=== PATIENT | female | born 1950 | race Caucasian/White ===

== ENCOUNTER 2017-08-19 19:59 | Emergency (ER) | payer MEDICARE, BC ==
[~2017-08-19] VITALS: Ht 165.1 cm; Wt 75.7 kg
[~2017-08-19 19:59] MED LIST: LANS30CA37 PO; OXYB10TA4 PO; SIMV20TA5 PO; SOLI10TA6 PO
[2017-08-19 20:44] LABS: BASOPHILS # (AUTO) 0.1 X10'3 (0-0.2); BASOPHILS % (AUTO) 0.8 % (0-1); EOSINOPHILS # (AUTO) 0.8 X10'3 (0-0.9); EOSINOPHILS % (AUTO) 7.6 % (0-6); HEMATOCRIT 40.5 % (35.0-45.0); HEMOGLOBIN 13.9 g/dl (12.0-16.0); LYMPHOCYTES # (AUTO) 3.8 X10'3 (1.1-4.8); LYMPHOCYTES % (AUTO) 36.8 % (21-51); MEAN CORPUSCULAR HEMOGLOBIN 33.1 PG (27.0-31.0); MEAN CORPUSCULAR HGB CONC 34.3 % (33.0-36.5); MEAN CORPUSCULAR VOLUME 96.5 FL (78-98); MEAN PLATELET VOLUME 7.3 FL (7.4-10.4); MONOCYTES # (AUTO) 0.9 X10'3 (0-0.9); MONOCYTES % (AUTO) 8.5 % (2-12); NEUTROPHILS # (AUTO) 4.8 X10'3 (1.8-7.7); NEUTROPHILS % (AUTO) 46.3 % (42-75); PLATELET COUNT 360 X10'3 (140-440); RED BLOOD COUNT 4.19 X10'6 (4.20-5.60); RED CELL DISTRIBUTION WIDTH 13.5 % (11.5-14.5); WHITE BLOOD COUNT 10.3 X10'3 (4.5-11.0)
[2017-08-19] MEDS ORDERED: ondansetron 4mg rapidly disintigrating tab PO ONE (20:45)
[2017-08-19 20:55] LABS: PARTIAL THROMBOPLASTIN TIME 34 SECONDS (22-32); PROTHROMBIN TIME 10.7 SECONDS (9.0-12.0)
[2017-08-19 21:00] LABS: ALANINE AMINOTRANSFERASE 28 U/L (12-78); ALBUMIN 3.6 G/DL (3.4-5.0); ALKALINE PHOSPHATASE 84 IU/L (46-116); ANION GAP 8 (8-16); ASPARTATE AMINO TRANSFERASE 39 U/L (10-37); BILIRUBIN,TOTAL 0.3 MG/DL (0.1-1.0); BLOOD UREA NITROGEN 27 MG/DL (7-18); BUN/CREATININE RATIO 33.8 (6.6-38.0); CHLORIDE 106 MMOL/L (99-107); GLUCOSE 144 MG/DL (70-104); LIPASE 204 U/L (73-393); POTASSIUM 3.8 MMOL/L (3.5-5.1); SODIUM 141 MMOL/L (135-145); TOTAL CARBON DIOXIDE 26.9 MMOL/L (24-32); TOTAL PROTEIN 7.2 G/DL (6.4-8.2); eGFR 71 ML/MIN
[2017-08-19] MEDS ORDERED: ketorolac trometh. 30mg/ml inj. IM ONE (21:35)
[2017-08-19 23:22] LABS: CLARITY,URINE CLEAR (Clear); COLOR,URINE YELLOW (Yellow); GLUCOSE, URINE NEGATIVE (Neg); KETONES,URINE TRACE mg/dl (Neg); LEUKOCYTE ESTERASE ,URINE TRACE (Neg); NITRITES, URINE NEGATIVE (Neg); OCCULT BLOOD,URINE NEGATIVE (Neg); PH,URINE 6.5 (4.8-8.0); PROTEIN,URINE NEGATIVE (Neg)
[2017-08-19 23:25] LABS: UA COLLECTION TYPE CLN CATCH MIDSTREAM
[2017-08-19 23:30] LABS: BACTERIA,URINE 1+ /HPF (Neg); RBC,URINE 0-2 /HPF (0-2); SQUAMOUS EPITHELIAL CELL,UR MODERATE /LPF (FEW); WBC,URINE 0-4 /HPF (0-4)
[2017-08-19] MEDS ORDERED: FAMO-128 PO (23:46)
[2017-08-19] MEDS ORDERED: NITR100C PO (23:46)
[2017-08-19 23:59] VITALS: BP 135/60
== END 2017-08-20 | disposition home or self-care (01) ==
LOC: ER 19:59
DX: K29.00 Acute gastritis without bleeding (principal); N39.0 Urinary tract infection, site not specified; I48.91 Unspecified atrial fibrillation; Z90.710 Acquired absence of both cervix and uterus; Z98.890 Other specified postprocedural states; Z79.899 Other long term (current) drug therapy; Z88.2 Allergy status to sulfonamides; Z88.1 Allergy status to other antibiotic agents
CPT/HCPCS: 36415; 71045; 80053; 81001; 84484; 85025; 85610; 85730; 87088; 93005; 96372; 99285; A4353; J1885; 83690

== ENCOUNTER 2021-01-23 17:53 | Emergency (ER) | payer MEDICARE, BC ==
[~2021-01-23] VITALS: Ht 165.1 cm; Wt 73.0 kg
[~2021-01-23 17:53] MED LIST changes: +APIX5TAB3 PO; +ASPI-1071 PO; +ATOR10TA PO; +ESTR1TAB28 PO; +LACT1CAP26 PO; -LANS30CA37 PO; +LANS30CA56 PO; +LOP25T PO; -OXYB10TA4 PO; -SIMV20TA5 PO; -SOLI10TA6 PO; +TOLT2TAB2 PO
[2021-01-23 18:09] VITALS: BP 154/74
[2021-01-23 18:40] LABS: CLARITY,URINE CLOUDY (Clear); COLOR,URINE YELLOW (Yellow); GLUCOSE, URINE NEGATIVE (Neg); KETONES,URINE NEGATIVE (Neg); LEUKOCYTE ESTERASE ,URINE LARGE (Neg); NITRITES, URINE POSITIVE (Neg); OCCULT BLOOD,URINE LARGE (Neg); PROTEIN,URINE 30 mg/dl (Neg); UROBILINOGEN,URINE 0.2 E.U/dL (0.2-1.0)
[2021-01-23 18:52] LABS: UA COLLECTION TYPE STRAIGHT CATH
[2021-01-23 19:06] LABS: WBC,URINE TNTC /HPF (0-4)
[2021-01-23 19:07] LABS: BACTERIA,URINE 4+ /HPF (Neg); RBC,URINE 20-50 /HPF (0-2); SQUAMOUS EPITHELIAL CELL,UR FEW /LPF (FEW)
[2021-01-23] MEDS ORDERED: CefTRIAXone 1000mg IM Kit (w/lidocaine diluent) IM ONE (21:10)
[2021-01-23] MEDS ORDERED: AMOX-115 PO (21:12)
== END 2021-01-23 21:31 | disposition home or self-care (01) ==
LOC: ER 17:55
DX: N39.0 Urinary tract infection, site not specified (principal); I48.91 Unspecified atrial fibrillation; E78.00 Pure hypercholesterolemia, unspecified; I10 Essential (primary) hypertension; M19.90 Unspecified osteoarthritis, unspecified site; Z88.2 Allergy status to sulfonamides; Z88.1 Allergy status to other antibiotic agents; Z88.8 Allergy status to other drugs, medicaments and biological substances; Z79.82 Long term (current) use of aspirin; Z79.899 Other long term (current) drug therapy
CPT/HCPCS: 81001; 87077; 87088; 87186; 96372; 99283; J0696

== ENCOUNTER 2022-07-12 21:42 | Emergency (ER) | payer MEDICARE, BC ==
[~2022-07-12] VITALS: Ht 165.1 cm; Wt 74.4 kg
[~2022-07-12 21:42] MED LIST changes: +ASPI-1053 PO; -ASPI-1071 PO; -ATOR10TA PO; +ATOR10TA70 PO; +BUPR-230 PO; -TOLT2TAB2 PO; +TOLT2TAB20 PO
[2022-07-12 22:05] LABS: BASOPHILS # (AUTO) 0.2 X10'3 (0-0.2); BASOPHILS % (AUTO) 1.6 % (0-1); EOSINOPHILS # (AUTO) 0.5 X10'3 (0-0.9); EOSINOPHILS % (AUTO) 5.3 % (0-6); HEMATOCRIT 41.9 % (35.0-45.0); HEMOGLOBIN 13.7 g/dl (12.0-16.0); LYMPHOCYTES # (AUTO) 2.9 X10'3 (1.1-4.8); LYMPHOCYTES % (AUTO) 30.4 % (21-51); MEAN CORPUSCULAR HEMOGLOBIN 30.9 PG (27.0-31.0); MEAN CORPUSCULAR HGB CONC 32.7 g/dL (33.0-36.5); MEAN CORPUSCULAR VOLUME 94.5 FL (78-98); MEAN PLATELET VOLUME 6.9 FL (7.4-10.4); MONOCYTES # (AUTO) 0.8 X10'3 (0-0.9); MONOCYTES % (AUTO) 8.1 % (2-12); NEUTROPHILS # (AUTO) 5.2 X10'3 (1.8-7.7); NEUTROPHILS % (AUTO) 54.6 % (42-75); PLATELET COUNT 356 X10'3 (140-440); RED BLOOD COUNT 4.43 X10'6 (4.20-5.60); RED CELL DISTRIBUTION WIDTH 14.7 % (11.5-14.5); WHITE BLOOD COUNT 9.5 X10'3 (4.5-11.0)
[2022-07-12 22:42] LABS: ALANINE AMINOTRANSFERASE 21 U/L (12-78); ALBUMIN 3.7 G/DL (3.4-5.0); ALKALINE PHOSPHATASE 93 IU/L (46-116); ANION GAP 8 (8-16); ASPARTATE AMINO TRANSFERASE 18 U/L (10-37); BILIRUBIN,TOTAL 0.2 MG/DL (0.1-1.0); BLOOD UREA NITROGEN 19 MG/DL (7-18); BUN/CREATININE RATIO 23.5 (6.6-38.0); CALCIUM 8.7 MG/DL (8.5-10.1); CHLORIDE 103 MMOL/L (99-107); CREATININE 0.81 MG/DL (0.40-0.90); GLUCOSE 199 MG/DL (70-104); MAGNESIUM 1.8 MG/DL (1.5-2.4); POTASSIUM 3.5 MMOL/L (3.5-5.1); SODIUM 138 MMOL/L (135-145); TOTAL CARBON DIOXIDE 26.8 MMOL/L (24-32); TOTAL PROTEIN 7.3 G/DL (6.4-8.2); eGFR 69 ML/MIN
[2022-07-13 04:23] VITALS: BP 160/79
== END 2022-07-13 04:32 | disposition home or self-care (01) ==
LOC: ER 21:42
DX: R00.2 Palpitations (principal); I48.91 Unspecified atrial fibrillation; E78.00 Pure hypercholesterolemia, unspecified; I10 Essential (primary) hypertension; Z88.2 Allergy status to sulfonamides; Z79.899 Other long term (current) drug therapy; Z88.6 Allergy status to analgesic agent; Z79.2 Long term (current) use of antibiotics; Z79.82 Long term (current) use of aspirin
CPT/HCPCS: 36415; 80053; 83735; 83880; 84484; 85025; 93005; 99284

== ENCOUNTER 2022-08-02 00:53 | Emergency (ER) | payer MEDICARE, BC ==
[~2022-08-02] VITALS: Ht 165.1 cm; Wt 72.7 kg
[2022-08-02 01:08] VITALS: BP 178/89
[2022-08-02 01:50] LABS: BASOPHILS # (AUTO) 0.1 X10'3 (0-0.2); EOSINOPHILS # (AUTO) 0.5 X10'3 (0-0.9); EOSINOPHILS % (AUTO) 4.8 % (0-6); HEMATOCRIT 42.1 % (35.0-45.0); HEMOGLOBIN 14.5 g/dl (12.0-16.0); LYMPHOCYTES % (AUTO) 41.6 % (21-51); MEAN CORPUSCULAR HGB CONC 34.4 g/dL (33.0-36.5); MEAN PLATELET VOLUME 6.8 FL (7.4-10.4); MONOCYTES # (AUTO) 0.9 X10'3 (0-0.9); MONOCYTES % (AUTO) 9.5 % (2-12); NEUTROPHILS # (AUTO) 4.2 X10'3 (1.8-7.7); NEUTROPHILS % (AUTO) 43.1 % (42-75); PLATELET COUNT 365 X10'3 (140-440); RED BLOOD COUNT 4.53 X10'6 (4.20-5.60); RED CELL DISTRIBUTION WIDTH 14.2 % (11.5-14.5); WHITE BLOOD COUNT 9.6 X10'3 (4.5-11.0)
[2022-08-02 01:57] LABS: ANION GAP 10 (8-16); BILIRUBIN,TOTAL 0.2 MG/DL (0.1-1.0); BLOOD UREA NITROGEN 24 MG/DL (7-18); BUN/CREATININE RATIO 27.9 (6.6-38.0); CALCIUM 8.7 MG/DL (8.5-10.1); CHLORIDE 103 MMOL/L (99-107); CREATININE 0.86 MG/DL (0.40-0.90); GLUCOSE 133 MG/DL (70-104); POTASSIUM 3.7 MMOL/L (3.5-5.1); SODIUM 138 MMOL/L (135-145); TOTAL CARBON DIOXIDE 25.2 MMOL/L (24-32); TOTAL PROTEIN 7.4 G/DL (6.4-8.2); eGFR 65 ML/MIN
[2022-08-02 01:58] LABS: ALANINE AMINOTRANSFERASE 18 U/L (12-78); ALBUMIN 3.6 G/DL (3.4-5.0); ALBUMIN/GLOBULIN RATIO 0.9 (1.1-1.5); ALKALINE PHOSPHATASE 89 IU/L (46-116); ASPARTATE AMINO TRANSFERASE 14 U/L (10-37)
[2022-08-02 02:05] LABS: MAGNESIUM 1.8 MG/DL (1.5-2.4)
== END 2022-08-02 07:11 | disposition left against medical advice (07) ==
LOC: ER 00:53
DX: R07.89 Other chest pain (principal); Z53.21 Procedure and treatment not carried out due to patient leaving prior to being seen by health care provider; Z79.899 Other long term (current) drug therapy
CPT/HCPCS: 36415; 71045; 80053; 83735; 83880; 84484; 85025

== ENCOUNTER 2023-10-23 20:44 | Emergency (ER) | payer MEDICARE, BC ==
[~2023-10-23] VITALS: Ht 165.1 cm; Wt 73.6 kg
[2023-10-23] MEDS ORDERED: PRED20TA PO (22:19)
[2023-10-23] MEDS: predniSONE 20 mg tablet PO ONE (22:26)
[2023-10-23] MEDS: famotidine 20mg tablet PO ONE (22:27)
[2023-10-23 22:35] VITALS: BP 155/64; PULSE 73; RESP 17; TEMP 98; O2SAT 98
== END 2023-10-23 22:36 | disposition home or self-care (01) ==
LOC: ER 20:44
DX: T78.40XA Allergy, unspecified, initial encounter (principal); Z88.2 Allergy status to sulfonamides; Z88.8 Allergy status to other drugs, medicaments and biological substances; I10 Essential (primary) hypertension; E78.00 Pure hypercholesterolemia, unspecified; M19.90 Unspecified osteoarthritis, unspecified site; I48.91 Unspecified atrial fibrillation; Z90.710 Acquired absence of both cervix and uterus; Z98.51 Tubal ligation status; X58.XXXA Exposure to other specified factors, initial encounter
CPT/HCPCS: 99283; J7512

== ENCOUNTER 2025-02-24 22:17 | Inpatient (IN) | payer MEDICARE, BC ==
[~2025-02-24] VITALS: Ht 165.1 cm; Wt 57.0 kg
[2025-02-24 01:00] VITALS: RESP 18; O2SAT 98
[~2025-02-24 22:17] MED LIST changes: -BUPR-230 PO; +BUPR-724 PO
--- NOTE | 2025-02-24 22:24 | ELECTROCARDIOGRAPH REPORT ---
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
[2025-02-24 22:41] LABS: MEAN PLATELET VOLUME 7.0 FL (7.4-10.4); RED CELL DISTRIBUTION WIDTH 13.1 % (11.5-14.5)
--- NOTE | 2025-02-24 22:50 | RADIOLOGY REPORT ---
CHEST RADIOGRAPH Indication: CP Technique: Single frontal view of the chest was obtained Comparison: CHEST,SINGLE VIEW on DOS: 08/02/22, CHEST,SINGLE VIEW on DOS: 08/24/20 FINDINGS: Lines and Tubes: None Lungs: No focal consolidation. Mild pulmonary vascular congestion. Pleura: No effusion. No pneumothorax. Cardiomediastinal contours: Minimal cardiomegaly. Bones: No acute osseous abnormality. IMPRESSION: 1. Mild pulmonary vascular congestion. Minimal cardiomegaly. No focal consolidation.
--- NOTE | 2025-02-24 22:53 | Physician Documentation ---
History of Present Illness ~ Chief Complaint: Palpitations Stated Complaint: AFIB Time Seen by MD: 22:40 Primary Medical Doctor: elizabeth HPI Patient presents to the emergency room for palpitations. She has history of atrial fibrillation. She is usually in normal sinus rhythm and has been instructed by her wood tile installer to increase flecainide and metoprolol if heart rate goes up above 140. She had not experienced this tonight and did not take additional medications. She does have a court monitor in his able to see that her heart would pause for several sec and during this time she become symptomatic with generalized weakness. This again happened and therefore came in to be evaluated. She denies any chest pain. Medication Reconciliation Allergies: Coded Allergies: Sulfa (Sulfonamide Antibiotics) (Verified Allergy, Severe, BREATHING P ROBLEMS, 10/23/23) dabigatran etexilate (Verified Adverse Reaction, Intermediate, ABD PAIN AND UPSET, 10/23/23) ciprofloxacin (Verified Adverse Reaction, Unknown, VOMITING, 10/23/23) ciprofloxacin HCl (Verified Adverse Reaction, Unknown, VOMITING, 10/23/23) Uncoded Allergies: AMOX-CLAV (Allergy, Unknown, 10/23/23) Scheduled Apixaban (Eliquis), 1 TAB PO Q12H, (Reported) Aspirin (Aspirin), 1 TAB PO DAILY, (Reported) Biotin (Biotin), 1 TAB PO DAILY, (Reported) Estradiol (Estradiol), 1 TAB PO DAILY, (Reported) Flecainide Acetate (Flecainide Acetate), 1 TAB PO Q12H, (Reported) Lactobacillus Acidophilus (Probiotic), 1 CAP PO DAILY, (Reported) Metoprolol Tartrate* (Lopressor tablet*), 1 TAB PO BID, (Reported) Tolterodine Tartrate (Tolterodine Tartrate), 1 TAB PO BID, (Reported) Discontinued Medications Aspirin (Godwin Chewable), 81 MG PO DAILY, (Reported) Discontinued Reason: completed med therapy Atorvastatin Calcium (Atorvastatin Calcium), 1 TAB PO DAILY, (Reported) Discontinued Reason: completed med therapy Bupropion HCl (Bupropion HCl Sr), 1 TABLET PO QAM, (Reported) Discontinued Reason: completed med therapy Lactobacillus Rhamnosus (Culturelle), 1 CAP PO DAILY, (Reported) Discontinued Reason: completed med therapy Lansoprazole (Lansoprazole), 1 CAP PO DAILY, (Reported) Discontinued Reason: completed med therapy Past Medical History Past Medical History: Atrial Fibrillation, High Cholesterol, Hypertension, Arthritis Past Surgical History: hysterectomy, tonsillectomy, tubal ligation, other Other Past Surgical History: bladder surgery x5 Patient History: FH: [place] (myocardial infarction) FATHER, Onset:50's - 60 FH: diabetes mellitus MOTHER Alcohol Use: Occasionally Drug Use: none Lives with: Spouse Lives In: Home Review of Systems ROS All review of systems negative except as per HPI Physical Exam Vital Signs: Temperature: 98.0, Heart Rate: 116, Respiratory Rate: 16, BP: 172/87, Pulse Oximetry: 97 Oxygen Flow Rate: 0 Physical Exam General: Patient is awake, alert, oriented x4 in no acute distress and well appearing.~ Head: Normocephalic and atraumatic. Eyes: Conjunctival normal. EOMI. PERRL. ENT: Mucous membranes moist. Neck: Supple, trachea is midline. Chest: Clear to auscultation bilaterally without rales, rhonchi, or wheezes. There is no accessory muscle use or retractions. Cardiac: RRR without murmurs, gallops, or rubs. Abd: Soft, nondistended, nontender, with normoactive bowel sounds. No guarding, rebound, or rigidity. Extremities: Normal strength. Normal range of motion. No deformities or edema. Progress Results/Orders Results/Orders Orders - KOBY HAAS MD Chest,Single View (02/24/25 22:31) Monitor (02/24/25 22:18) Saline Lock (02/24/25 22:18) Oxygen (02/24/25 22:18) Hs Troponin I W Calculations (02/25/25 00:18) Hs Troponin I W Calculations (02/25/25 01:18) Page Hospitalist (02/24/25 23:07) Fill Out Med Reconciliation (02/24/25 23:07) Completed Orders - KOBY HAAS MD Chest,Single View (02/24/25 22:31) Cbc/Diff (02/24/25 22:18) BMP (02/24/25 22:18) PBNP (02/24/25 22:18) Electrocardiogram (02/24/25 22:18) Hs Troponin I W Calculations (02/24/25 22:18) Vital Signs 02/24/25 02/24/25 22:26 22:57 Temp 98.0 98.0 Pulse 116 79 Resp 16 21 B/P (MAP) 172/87 188/78 (114) Pulse Ox 97 96 O2 Flow Rate 0 0 Laboratory Tests Test 02/24/25 22:28 White Blood Count 10.7 Red Blood Count 4.34 Hemoglobin 14.6 Hematocrit 43.4 Mean Corpuscular Volume 99.9 H Mean Corpuscular Hemoglobin 33.7 H Mean Corpuscular Hemoglobin Concent 33.7 Red Cell Distribution Width 13.1 Platelet Count 323 Mean Platelet Volume 7.0 L Neutrophils (%) (Auto) 42.9 Lymphocytes (%) (Auto) 38.2 Monocytes (%) (Auto) 12.7 H Eosinophils (%) (Auto) 5.4 Basophils (%) (Auto) 0.8 Neutrophils # (Auto) 4.6 Lymphocytes # (Auto) 4.1 Monocytes # (Auto) 1.4 H Eosinophils # (Auto) 0.6 Basophils # (Auto) 0.1 CBC Comment Sodium Level 138 Potassium Level 4.1 Chloride Level 102 Carbon Dioxide Level 28.8 Anion Gap 7 L Blood Urea Nitrogen 24 H Creatinine 0.98 H Estimated GFR/1.73 m2 55 BUN/Creatinine Ratio 24.5 H Glucose Level 118 H Calcium Level 9.4 Troponin I High Sensitivity 17 Pro-B-Type Natriuretic Peptide 602 H Albumin 3.8 Chemistry Comments EKG/XRAY/CT/US/VASC/MRI EKG : Additional Comment EKG interpreted by myself shows time of 09/04/2021, rate 119, atrial fibrillation, normal axis, no ST changes Chest X-Ray : Additional Comments Exam: CHEST,SINGLE VIEW CHEST RADIOGRAPH Indication: CP Technique: Single frontal view of the chest was obtained Comparison: CHEST,SINGLE VIEW on DOS: 08/02/22, CHEST,SINGLE VIEW on DOS: 08/24/20 FINDINGS: Lines and Tubes: None Lungs: No focal consolidation. Mild pulmonary vascular congestion. Pleura: No effusion. No pneumothorax. Cardiomediastinal contours: Minimal cardiomegaly. Bones: No acute osseous abnormality. IMPRESSION: 1. Mild pulmonary vascular congestion. Minimal cardiomegaly. No focal consolidation. Medical Decision Making Findings Patient presents to the emergency room for evaluation of palpitations as per HPI. Differentials include but are not limited to ACS, AFib RVR, V-tach, muscle spasm therefore emergent labs and imaging indicated. Of concern is patient's EKG tracing which shows a proximally 5 seconds episode of asystole and which time she had becomes symptomatic. She may need medication adjustments versus pacemaker placement. We will admit for further monitoring and likely intervention. Departure Admitted to Inpatient Unit: yes, to hospitalist Impression: Primary Impression: Irregular heartbeat Condition: Guarded Referrals: NO PRIMARY CARE PROVIDER (PCP) Signature Scribe Signature: No scribe Attestation: The note accurately reflects work and decisions made by me.Koby Haas MD 02/24/25 23:06 KOBY HAAS MD Feb 24, 2025 22:53
[2025-02-24 23:01] LABS: CREATININE 0.98 MG/DL (0.40-0.90); PRO BRAIN NATRIURETIC PEPTIDE 602 PG/ML (0-450); TOTAL CARBON DIOXIDE 28.8 MMOL/L (24-32); eGFR 55 ML/MIN
[2025-02-24] MEDS ORDERED: FLEC50TA28 PO (23:16)
[2025-02-24] MEDS ORDERED: ASPI-1265 PO (23:18)
[2025-02-24] MEDS ORDERED: LACT1CAP65 PO (23:18)
[2025-02-24] MEDS ORDERED: BIOT5000 PO (23:18)
[2025-02-24] MEDS ORDERED: ondansetron/PF 4mg/2ml inj IV PRN (23:50)
[2025-02-24] MEDS ORDERED: potassium Cl 40MEQ/1/2NS 520ml 520 ML IV PRN (23:50)
[2025-02-24] MEDS ORDERED: magnesium Cl slow-release 64mg tablet PO PRN (23:50)
[2025-02-24] MEDS ORDERED: magnesium sulf-water 4G/100mL 100 ML IV PRN (23:50)
[2025-02-24] MEDS ORDERED: magnesium hydroxide 30ml (MOM) UD suspension PO PRN (23:50)
[2025-02-24] MEDS ORDERED: potassium Cl 20 mEq SR tablet PO PRN ×2 (23:50)
[2025-02-24] MEDS ORDERED: magnesium sulf-water 2g/50mL 50 ML IV PRN (23:50)
--- NOTE | 2025-02-24 23:57 | HISTORY AND PHYSICAL-Residence ---
History & Physical Providers to CC Resident Creating Document: REGAN FRANCO RES ~ History of Present Illness Primary Medical Doctor: Rita Artis Reason for Admit\Complaint: Symptomatic sinus pauses History of Present Illness This is a 75 year old female patient with a past medical history of chronic atrial fibrillation and overflow incontinence presents to the hospital with complaints of symptomatic sinus pauses that was recorded on her monitor tech at home. Patient was apparently in good health until today morning when she suddenly developed acute onset of weakness correlating with the sinus pauses with no preceding symptoms including palpitations, chest pain, nausea, dizziness or syncopal episode. Only significant history includes recent camping history last weekend since when she has developed increased urinary frequency. Denies any fevers, chills, recent illnesses, or medication changes. Follows with Dr. Salinas cotton grader, since the last weekend after capping, she has had increased episodes of atrial fibrillation with RVR and the plan with Dr. Salinas was to consider repeat echocardiogram and Holter monitor for increasing her flecainide and metoprolol dosing. last stress test was 6 months ago. The episode of the sinus pause and symptomatic weakness was also evident in the ER on the satellite project site monitor. Allergies: Coded Allergies: Sulfa (Sulfonamide Antibiotics) (Verified Allergy, Severe, BREATHING PROBLEMS, 10/23/23) dabigatran etexilate (Verified Adverse Reaction, Intermediate, ABD PAIN AND UPSET, 10/23/23) ciprofloxacin (Verified Adverse Reaction, Unknown, VOMITING, 10/23/23) ciprofloxacin HCl (Verified Adverse Reaction, Unknown, VOMITING, 10/23/23) Uncoded Allergies: AMOX-CLAV (Allergy, Unknown, 10/23/23) Home Medications Home Medications Active Reported Probiotic (Lactobacillus Acidophilus) 10 Billion Cell Capsule 1 Cap PO DAILY 10 Days Biotin 5,000 Mcg Tab.rapdis 1 Tab PO DAILY 30 Days Aspirin 81 Mg Tab.chew 1 Tab PO DAILY 30 Days Flecainide Acetate 50 Mg Tablet 1 Tab PO Q12H 30 Days Eliquis (Apixaban) 5 Mg Tablet 1 Tab PO Q12H Tolterodine Tartrate 2 Mg Tablet 1 Tab PO BID Estradiol 1 Mg Tablet 1 Tab PO DAILY Lopressor tablet* (Metoprolol Tartrate) 25 Mg Tablet 1 Tab PO BID Past Medical History Past Medical History Chronic atrial fibrillation Overflow incontinence of urine Past Surgical History Surgical History Comment Bladder sling procedures Family History Family History: FH: [place] (myocardial infarction) FATHER, Onset:50's - 60 FH: diabetes mellitus MOTHER Past Social History Social History Comment Nonsmoker, no alcohol or illicit drug abuse. Lives at home with the . Ambulates or around without any assistive devices Alcohol Use: Occasionally Drug Use: None Lives with: Spouse Lives In: Home ROS Constitutional: Reports: weakness Eyes: Reports: no symptoms reported ENT: Reports: no symptoms reported Respiratory: Reports: no symptoms reported Cardiovascular: Reports: no symptoms reported Gastrointestinal: Reports: no symptoms reported Genitourinary: Reports: no symptoms reported Female Genitalia: Reports: no reported symptoms Neurological: Reports: no symptoms reported Musculoskeletal: Reports: no symptoms reported Integumentary: Reports: no symptoms reported Allergic/Immunologic: Reports: no symptoms reported Hematologic/Lymphatic: Reports: no symptoms reported Endocrine: Reports: no symptoms reported Psychiatric: Reports: no symptoms reported Exam Vitals: Vital Signs Date Time Temp Pulse Resp B/P (MAP) Pulse Ox O2 Delivery O2 Flow Rate FiO2 02/24/25 23:42 98.0 73 14 157/69 (98) 96 0 General: General: Awake and Alert, no acute distress. HEENT: Conjunctiva pink, Sclera clear, Mucus Membranes moist. Resp: Unlabored. Diminished basilar breath sounds. Heart: Regular Rate and rhythm, normal S1 and S2, grade 2/5 pansystolic aortic murmur Abdomen: Distended, Soft and non tender no organomegaly. Bowel sounds present Extremities: No cyanosis,clubbing or edema. Skin: Warm and Dry. No bug bites noted. 1 x 1 cm Laceration on the glabella secondary to mechanical trauma. Actinic keratoses patches across the face and nasal bridge. Diagnostic Data Last Recorded Lab Results: 02/24/25222702/24/252227 Advance Care Planning Advanced Care plannin - 30 Minutes Additional Plan Intermittent Sinus pauses: Chronic atrial fibrillation Symptomatic Possible etiology secondary to urinary retention especially in view of recent change in urinary frequency and self catheterizations Longest pause on her monitor was 6 seconds EKG reveals chronic atrial fibrillation, no ST or T-wave changes Follow echocardiogram in am All electrolytes within normal limits, maintain K at 4 and mag at 2.[address] Salinas in am Continue telemetry monitoring Holding flecainide and metoprolol at this time Overflow incontinence: Secondary to h/o multiple bladder sling procedures No UTI on urinalysis Urinates through self catheterization Restart home medication of tolterodine and estradiol after reconciliation Bladder scan q.6 hours to monitor for urinary retention associated sinus pauses Mild LUNA: X-ray reveals mildly increased pulmonary vascular congestion We will not start IVF but recommend 1-1.5l fluids orally Monitor BMP and bladder scans q.6 hours Hyperchromic and macrocytic anemia: Follow vitamin B12 Lines: PIV Diet: Regular diet Code status: Full code DVT prophylaxis: Triston Franco PGY3, Internal medicine resident Date of Service: Feb 25, 2025 Billing Provider: DEVIN DANIELS MD, DEEPANJALI, RES Feb 24, 2025 23:57
[2025-02-25] VITALS (7 sets, daily range): BP systolic 125–161; BP diastolic 53–78; PULSE 63–78; RESP 14–24; TEMP 97.6–98.1; O2SAT 95–98
[2025-02-25 00:13] LABS: LEUKOCYTE ESTERASE ,URINE TRACE (Neg); NITRITES, URINE NEGATIVE (Neg); OCCULT BLOOD,URINE TRACE-INTACT (Neg); UA COLLECTION TYPE CLN CATCH MIDSTREAM
[2025-02-25 00:18] LABS: SQUAMOUS EPITHELIAL CELL,UR MODERATE /LPF (FEW)
[2025-02-25 06:42] LABS: MEAN PLATELET VOLUME 7.3 FL (7.4-10.4); RED CELL DISTRIBUTION WIDTH 13.1 % (11.5-14.5)
[2025-02-25 07:02] LABS: CHOL/HDL RATIO 2.5 (0.00-4.99); CREATININE 0.75 MG/DL (0.40-0.90); LDL CHOLESTEROL 63 MG/DL (50-100); PHOSPHORUS 3.3 MG/DL (2.3-4.5); TOTAL CARBON DIOXIDE 25.4 MMOL/L (24-32); eCRCL 57 ML/MIN; eGFR 75 ML/MIN
[2025-02-25] MEDS: docusate sod 100mg capsule PO SCH (08:00)
[2025-02-25] MEDS: K and/or MAG REPLACEMENT MC SCH (08:00)
[2025-02-25] MEDS ORDERED: hydrALAZINE 20mg/ml inj. IV PRN (10:45)
--- NOTE | 2025-02-25 10:58 | CONSULTATION REPORT - RESIDENT ---
Consult Providers to CC Resident Creating Document: CHETAN GILES RES History of Present Illness Reason for Admit\Complaint: Generalized weakness, sinus pauses History of Present Illness 75-year-old female with past medical history of type 2 diabetes mellitus, hyperlipidemia, atrial fibrillation, cystocele with overflow incontinence, GERD, coronary artery disease, anxiety/depression presented to the ER with generalized weakness and very long sinus pauses that was recorded on her nuclear monitoring technician at home on yesterday afternoon and she felt the same kind of weakness after the dinner and she had a very long pause in the mobile EKG monitoring. Endorses generalized weakness, decreased energy from yesterday afternoon and she endorses that while she was at [facility] in [facility] at 5000 ft she developed weakness and increased urinary frequency and denied fever, chills, recent illness, rash, insect bite. she denied chest pain, palpitations, dizziness, syncope, nausea, vomiting , swelling of legs, deviation of angle of mouth, slurring of speech, seizures, weakness of limbs, abdominal pain, abdominal distention, hematemesis, melena, bleeding per rectum. She called our office on 02/19/2025 because she had 2 episodes of AFib with a heart rate of 139 and asked about increasing the dose of flecainide and we said okay to increase flecainide 100 mg p.o. in the morning and 50 mg p.o. in the evening and recommended to check EKG in 1 week and follow up event monitoring in the next 1-4 weeks and she endorses that she is going to the 3 week trip to [facility] on this Sunday. We informed her that she can increase the dose after coming from the trip. dosing. last stress test was 6 months ago. The episode of the sinus pause and symptomatic weakness was also evident in the ER on the court monitor. Allergies: Coded Allergies: Sulfa (Sulfonamide Antibiotics) (Verified Allergy, Severe, BREATHING PROBLEMS, 10/23/23) dabigatran etexilate (Verified Adverse Reaction, Intermediate, ABD PAIN AND UPSET, 10/23/23) ciprofloxacin (Verified Adverse Reaction, Unknown, VOMITING, 10/23/23) ciprofloxacin HCl (Verified Adverse Reaction, Unknown, VOMITING, 10/23/23) Uncoded Allergies: AMOX-CLAV (Allergy, Unknown, 10/23/23) Home Medications Home Medications Active Reported Probiotic (Lactobacillus Acidophilus) 10 Billion Cell Capsule 1 Cap PO DAILY 10 Days Biotin 5,000 Mcg Tab.rapdis 1 Tab PO DAILY 30 Days Aspirin 81 Mg Tab.chew 1 Tab PO DAILY 30 Days Flecainide Acetate 50 Mg Tablet 1 Tab PO Q12H 30 Days Eliquis (Apixaban) 5 Mg Tablet 1 Tab PO Q12H Tolterodine Tartrate 2 Mg Tablet 1 Tab PO BID Estradiol 1 Mg Tablet 1 Tab PO DAILY Lopressor tablet* (Metoprolol Tartrate) 25 Mg Tablet 1 Tab PO BID Past Medical History Past Medical History Type 2 diabetes mellitus Hyperlipidemia AFib Cystocele GERD Anxiety/depression Coronary artery disease Past Surgical History Surgical History Comment Tonsillectomy in 1963 Hysterectomy 1998 Cataract lens implants 2009 Tubalization 1980 Bladder surgery Family History Family History: FH: [place] (myocardial infarction) FATHER, Onset:50's - 60 FH: diabetes mellitus MOTHER Past Social History Social History Comment and lives with spouse. Very occasional use of alcohol cup of drinks occasionally Denied drug intake, She used to smoke cigarettes at the age of 13 and she quit smoking. Allergic to ciprofloxacin, sulfa antibiotics ROS ROS All are negative except positive pertinent as in HPI Exam Vitals: Vital Signs Date Time Temp Pulse Resp B/P (MAP) Pulse Ox O2 Delivery O2 Flow Rate FiO2 02/25/25 08:00 Room Air 02/25/25 07:00 97.7 63 16 161/73 (102) 96 02/24/25 23:42 0 General: General: Awake and Alert, oriented to time place person. Not in acute distress. Well-developed, well-nourished HEENT: Normocephalic, atraumatic. Conjunctiva pink, Sclera clear, Mucus Membranes moist. No carotid bruit and no JVD Chest and respiratory system: Unlabored. Breath sounds are diminished in bilateral lower zones of lung. No crepitations/wheezing Cardiovascular system: Regular Rate and rhythm, normal S1 and S2, no S3, S4, opening snap, ejection clicks. ejection systolic murmur of grade 2 to 3/6 murmur in the aortic area and pulmonary area and with a decreased intensity in the mitral area. No rubs. Abdomen: Distended, Soft and non tender no organomegaly. Bowel sounds present Extremities: No cyanosis,clubbing or edema. Bilateral 2+ DPA and posterior tibial pulses Skin: Warm and Dry. No bug bites noted. 1 x 1 cm Laceration on the glabella secondary to mechanical trauma. Actinic keratoses patches across the face and nasal bridge. Neurologic: Motor, sensory, cranial nerves, reflexes are intact. No focal neurological deficits. Psychiatric: Good eye contact, judgment, insight good, mood Diagnostic Data Last Recorded Lab Results: 02/25/25 0547 02/25/25 0547 Additional Plan Multiple Sinus pause secondary to possible Sick sinus syndrome Possible tachycardia bradycardia syndrome. Hyperlipidemia Coronary artery disease Atrial fibrillation Reviewed ER EKG which showed sinus pause Longest pause on her monitor was 6 seconds and multiple pauses in the range of 4.2. We recommended to postpone the [facility] trip. EKG reveals chronic atrial fibrillation, no ST or T-wave changes Recent tele showed no pus, no bradycardia accept the first-degree AV block and not in AFib Echocardiogram on 07/22/2024 mild concentric LVH with normal ejection fraction of 60%. Mild LV diastolic dysfunction. Mild pulmonary regurgitation. Recent nuclear stress test on 10/23/2024 is negative for inducible ischemia All electrolytes within normal limits, maintain K at 4 and mag more than 2.0 Hold flecainide, metoprolol, Eliquis for now for possible pacemaker implantation on Sunday. Overflow incontinence: Secondary to h/o multiple bladder sling procedures for cystocele Mild LUNA: Hyperchromic and macrocytic anemia: Possible UTI Anxiety/depression Management plan per hospitalist team Chetan Giles IM resident, PGY 2 Cardiology Patient seen and examined by Dr. PETERSON with resident physician. Patient known to me from my office practice. Patient had PAF on medications. Now has developed frequent episodes of prolonged pauses with symptoms. Recommend ppm. Flecainide and beta blockers on hold. Risks benefits alternative options discussed with the patient. Patient's anticoagulation on hold. Sepsis Screening Reassessment Date: Feb 25, 2025 Date of Service: Feb 25, 2025 Billing Provider: RHONDA ALEX MD, VENKATESH, [facility] Feb 25, 2025 10:58 RHONDA ALEX MD Feb 25, 2025 19:22
[2025-02-25] MEDS: potassium Cl 20 mEq SR tablet PO STA (13:07)
--- NOTE | 2025-02-25 18:53 | PROGRESS NOTE- Residence ---
Progress Note - Resident Providers to CC Resident Creating Document: LYLY DOLAN IHSAN, RES ~ Antibiotic Timeout Antibiotic Ordered?: No Subjective The patient was seen and examined at bedside today. She is currently asymptomatic and had no sinus pauses since admission to the floor. Dr. Salinas, her square shear operator consulted. Objective Vital Signs Date Time Temp Pulse Resp B/P (MAP) Pulse Ox O2 Delivery O2 Flow Rate FiO2 02/25/25 15:00 98.1 69 15 131/69 (89) 97 Room Air 02/24/25 23:42 0 Result Diagram: 02/25/25 0547 02/25/25 0547 General: Awake and Alert, no acute distress. HEENT: Conjunctiva pink, Sclera clear, Mucus Membranes moist. Resp: Unlabored. Diminished basilar breath sounds. Heart: Regular Rate and rhythm, normal S1 and S2, grade 2/5 pansystolic aortic murmur Abdomen: Distended, Soft and non tender no organomegaly. Bowel sounds present Extremities: No cyanosis,clubbing or edema. Skin: Warm and Dry. No bug bites noted. 1 cm Laceration on the glabella secondary to mechanical trauma. Plan Plan Symptomatic Intermittent Sinus pauses Chronic atrial fibrillation Longest pause on her monitor was [address] Salinas consulted. Appreciate recommendations. Advised to hold flecainide, metoprolol, Eliquis for possible pacemaker placement. Echocardiogram showed ejection fraction of 75%, RVSP of 34 mmHg. Recent nuclear stress test on 10/23/2024 is negative for inducible ischemia. All electrolytes within normal limits, maintain K at 4 and mag at 2.0 Continue telemetry monitoring Overflow incontinence: Secondary to h/o multiple bladder sling procedures No UTI on urinalysis Urinates through self catheterization Continue tolterodine and estradiol Bladder scan q. shift to monitor for urinary retention associated sinus pauses Mild LUNA secondary to vasomotor nephropathy, resolved X-ray reveals mildly increased pulmonary vascular congestion We will not start IVF but recommend 1-1.5l fluids orally Monitor BMP and bladder scans q.6 hours Hyperchromic and macrocytic anemia: Follow vitamin B12 Lines: PIV Diet: Regular diet Code status: Full code DVT prophylaxis: SCDs Disposition: Continue care in PCU. Anticipate pacemaker placement tomorrow or day after. No Eliquis, heparin, beta evan or flecainide as per Cardiology. Lyly Dolan MD Internal Medicine Resident, PGY-2 Date of Service: Feb 25, 2025 Billing Provider: CATRACHO GARIBAY MD,LYLY CHAMPAGNE, RES Feb 25, 2025 18:53
[2025-02-26 06:00] VITALS: BP 140/66; PULSE 65; RESP 9; TEMP 97.4; O2SAT 96
[2025-02-26 07:22] LABS: MEAN PLATELET VOLUME 7.4 FL (7.4-10.4); RED CELL DISTRIBUTION WIDTH 12.7 % (11.5-14.5)
[2025-02-26 07:34] LABS: CREATININE 0.73 MG/DL (0.40-0.90); PHOSPHORUS 3.0 MG/DL (2.3-4.5); TOTAL CARBON DIOXIDE 25.4 MMOL/L (24-32); eCRCL 58 ML/MIN; eGFR 77 ML/MIN
[2025-02-26] MEDS: lactobacillus rhamnosus 10,000 MMU CELLS/CAPSULE PO SCH (09:47)
[2025-02-26 11:00] VITALS: BP 147/65; PULSE 78; RESP 16; TEMP 97.1; O2SAT 94
--- NOTE | 2025-02-26 12:02 | PROGRESS NOTE- Residence ---
Progress Note - Resident Providers to CC Resident Creating Document: MEGANARSALAN MELISSADAYSI SHEPHERD ~ Antibiotic Timeout Antibiotic Ordered?: No Subjective The patient was seen and examined at bedside today. She still reports weakness but no sinus pauses with the telemetry but showed multiple PVCs. We recommended to feed her in the morning breakfast before 730 on NPO after that. Objective Vital Signs Date Time Temp Pulse Resp B/P (MAP) Pulse Ox O2 Delivery O2 Flow Rate FiO2 02/25/25 20:00 24 95 Room Air 02/25/25 18:30 64 02/25/25 15:00 98.1 131/69 (89) 02/24/25 23:42 0 Result Diagram: 02/26/25 0632 02/26/25 0632 General: Awake and Alert, no acute distress. HEENT: Conjunctiva pink, Sclera clear, Mucus Membranes moist. Resp: Unlabored. Diminished basilar breath sounds. Heart: Regular Rate and rhythm, normal S1 and S2, grade 2/5 pansystolic aortic murmur Abdomen: Distended, Soft and non tender no organomegaly. Bowel sounds present Extremities: No cyanosis,clubbing or edema. Skin: Warm and Dry. No bug bites noted. 1 cm Laceration on the glabella secondary to mechanical trauma. Advance Care Planning Advanced Care plannin - 30 Minutes Plan Plan Symptomatic Intermittent Sinus pauses Paroxysmal atrial fibrillation Longest pause on her monitor was [address] Alex consulted. Appreciate recommendations. Advised to hold flecainide, metoprolol, Eliquis for possible pacemaker placement. Echocardiogram showed ejection fraction of 75%, RVSP of 34 mmHg. Recent nuclear stress test on 10/23/2024 is negative for inducible ischemia. All electrolytes within normal limits, maintain K at 4 and mag at 2.0 Continue telemetry monitoring Overflow incontinence: Secondary to h/o multiple bladder sling procedures No UTI on urinalysis Urinates through self catheterization Continue tolterodine and estradiol Bladder scan q. shift to monitor for urinary retention associated sinus pauses Mild LUNA secondary to vasomotor nephropathy, resolved X-ray reveals mildly increased pulmonary vascular congestion We will not start IVF but recommend 1-1.5l fluids orally Monitor BMP and bladder scans q.6 hours Hyperchromic and macrocytic anemia: Follow vitamin B12 Lines: PIV Diet: Regular diet Code status: Full code DVT prophylaxis: SCDs Disposition: Continue care in PCU. Anticipate pacemaker placement tomorrow or day after. No Eliquis, heparin, beta evan or flecainide as per Cardiology. Lyly Watson MD Internal Medicine Resident, PGY-2 Patient seen and examined by Dr. Maureen OAKLEY with resident physician . Since she was on Eliquis which is currently on hold her ppm LB scheduled for tomorrow. Risks benefits alternative options discussed in detail with the patient. Date of Service: Feb 26, 2025 Billing Provider: [facility]ONDA ALEX [facility] Feb 26, 2025 12:02 RHONDA ALEX MD Feb 26, 2025 19:45
[2025-02-26 15:00] VITALS: BP 145/72; PULSE 75; RESP 15; TEMP 97.3; O2SAT 96
[2025-02-26 18:00] VITALS: BP 140/66; PULSE 83; RESP 12; TEMP 97.1; O2SAT 96
--- NOTE | 2025-02-26 19:09 | CARDIOLOGY REPORT ---
APPROVED REPORT EXAM: Comprehensive 2D, Doppler, and color-flow Echocardiogram. 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 Rita MD Previous ECHO: 07/22/24, [facility], EF: 60 2D Dimensions LA Diam4.6 cm IVSd 1.0 (0.7-1.1cm) LVDd 3.7 cm PWd 1.0 (0.7-1.1cm) IVSs 1.6 (0.8-1.2cm) LVDs 2.1 (2.5-4.0cm) PWs 1.3 (0.8-1.2cm) LVOT Diameter 1.93 (1.8-2.4cm) LVEF(%) 75.3 (>50%) Ao Asc Diam.2.93 cm IVC 16.97 mmFS (%) 43.3 % SV 44.1 ml CO 4.7 L/min M-Mode Dimensions Left Atrium(MM) 4.54 (2.5-4.0cm) Aortic Root 3.11 (2.2-3.7cm) Aortic Cusp Exc 1.43 (1.5-2.0cm) Aortic Valve AoV Peak Morgan. 170.3 cm/s AoV VTI 31.3 cm AO Peak GR. 11.6 mmHg AO Mean GR. 6 mmHg LVOT VTI 23.31 cm LVOT Peak Morgan. 115.7 cm/s SPENCER(VTI)/BSA 2.19 cm2/m2 SPENCER (VTI) 2.19 cm2 Pulmonary Valve PAEDP13.10 mmHg Tricuspid Valve TR P. Velocity 247 cm/s RAP ESTIMATE 10 mmHg TR Peak Gr. 24 mmHg RVSP 34 mmHg LEFT VENTRICLE Normal LV size and wall thickness. Overall systolic function is hyperdynamic. Intra-cavitary gradient is present without hemodynamic compromise. Resting gradient is 8 mmHg increasing to 20 mmHg.. LVEF i s 75%. RIGHT VENTRICLE Right ventricle is mildly dilated with adequate function. ATRIA Left atrium is moderately dilated. Mobile interatrial septum - no flow detected. AORTIC VALVE Trileaflet AV appears mildly sclerotic without stenosis. No insufficiency. MITRAL VALVE Mild mitral annular calcification without stenosis. Trace regurgitation. TRICUSPID VALVE The tricuspid valve is normal in structure with trace regurgitation. PULMONIC VALVE The pulmonary valve is normal in structure with trace insufficiency. GREAT VESSELS The aortic root is normal in size. The ascending aorta is normal in size. The IVC is normal in size a nd collapses >50% with inspiration. PERICARDIUM Normal pericardium. No effusion. Prominent anterior epicardial fat pad is present.
--- NOTE | 2025-02-26 19:39 | PROGRESS NOTE- Residence ---
Progress Note - Resident Providers to CC Resident Creating Document: LYLY DOLAN, RES ~ Antibiotic Timeout Antibiotic Ordered?: No Subjective The patient was seen and examined at bedside today. She continues to have that "weak" feeling but telemetry did not show any more sinus pauses. She has multiple PVCs. She is scheduled for permanent pacemaker placement tomorrow by Dr. Salinas at 2:00 p.m. Objective Vital Signs Date Time Temp Pulse Resp B/P (MAP) Pulse Ox O2 Delivery O2 Flow Rate FiO2 02/26/25 15:00 97.3 75 15 145/72 (96) 96 Room Air 02/24/25 23:42 0 Result Diagram: 02/26/25 0632 02/26/25 0632 General: Awake and Alert, no acute distress. HEENT: Conjunctiva pink, Sclera clear, Mucus Membranes moist. Resp: Unlabored. Diminished basilar breath sounds. Heart: Regular Rate and rhythm, normal S1 and S2, grade 2/5 pansystolic aortic murmur Abdomen: Distended, Soft and non tender no organomegaly. Bowel sounds present Extremities: No cyanosis,clubbing or edema. Skin: Warm and Dry. No bug bites noted. 1 cm Laceration on the glabella secondary to mechanical trauma. 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 Salinas consulted. Appreciate recommendations. Advised to hold flecainide, metoprolol, Eliquis for pacemaker placement tomorrow. Echocardiogram showed ejection fraction of 75%, RVSP of 34 mmHg. Recent nuclear stress test on 10/23/2024 is negative for inducible ischemia. All electrolytes within normal limits, maintain K at 4 and mag at 2.0 Continue telemetry monitoring Overflow incontinence: Secondary to h/o multiple bladder sling procedures No UTI on urinalysis Urinates through self catheterization Continue tolterodine and estradiol Bladder scan q. shift to monitor for urinary retention Mild LUNA secondary to vasomotor nephropathy, resolved X-ray reveals mildly increased pulmonary vascular congestion We will not start IVF but recommend 1-1.5l fluids orally Monitor BMP. Hyperchromic and macrocytic anemia: Follow vitamin B12 Lines: PIV Diet: Heart healthy diet Code status: Full code DVT prophylaxis: SCDs Disposition: Continue care in PCU. Anticipate pacemaker placement tomorrow. No Eliquis, heparin, beta evan or flecainide as per Cardiology. Lyly Dolan MD Internal Medicine Resident, PGY-2 Date of Service: Feb 26, 2025 Billing Provider: CATRACHO GARIBAY MD,LYLY CHAMPAGNE, RES Feb 26, 2025 19:39
--- NOTE | 2025-02-26 19:56 | PROGRESS NOTE- Residence ---
Progress Note - Resident Providers to CC Resident Creating Document: CHETAN GILES, RES ~ Subjective Seen the patient and examined at bedside. She is still continues to have weakness feeling but we reviewed the telemetry there is no sinus pauses but they do have some multiple PVCs. Who recommended to give the breakfast before 730 a.m. on tomorrow and NPO after that. Going to the qc lab technician for pacemaker implantation possibly around 2-3 p.m. on tomorrow Objective Vital Signs Date Time Temp Pulse Resp B/P (MAP) Pulse Ox O2 Delivery O2 Flow Rate FiO2 02/26/25 15:00 97.3 75 15 145/72 (96) 96 Room Air 02/24/25 23:42 0 Result Diagram: 02/26/25 0632 02/26/25 0632 General: Awake and Alert, no acute distress. HEENT: Conjunctiva pink, Sclera clear, Mucus Membranes moist. Resp: Unlabored. Diminished basilar breath sounds. Heart: Regular Rate and rhythm, normal S1 and S2, grade 2/5 pansystolic aortic murmur Abdomen: Distended, Soft and non tender no organomegaly. Bowel sounds present Extremities: No cyanosis,clubbing or edema. Skin: Warm and Dry. No bug bites noted. 1 cm Laceration on the glabella secondary to mechanical trauma. Advance Care Planning Advanced Care plannin - 30 Minutes Plan Plan Symptomatic Intermittent Sinus pauses Paroxysmal atrial fibrillation Longest pause on her monitor was [address] Alex consulted. Appreciate recommendations. Advised to hold flecainide, metoprolol, Eliquis for possible pacemaker placement. Echocardiogram showed ejection fraction of 75%, RVSP of 34 mmHg. Recent nuclear stress test on 10/23/2024 is negative for inducible ischemia. All electrolytes within normal limits, maintain K at 4 and mag at 2.0 Continue telemetry monitoring Overflow incontinence: Secondary to h/o multiple bladder sling procedures No UTI on urinalysis Urinates through self catheterization Continue tolterodine and estradiol Bladder scan q. shift to monitor for urinary retention associated sinus pauses Mild LUNA secondary to vasomotor nephropathy, resolved X-ray reveals mildly increased pulmonary vascular congestion We will not start IVF but recommend 1-1.5l fluids orally Monitor BMP and bladder scans q.6 hours Hyperchromic and macrocytic anemia: Follow vitamin B12 Lines: PIV Diet: Regular diet Code status: Full code DVT prophylaxis: SCDs Disposition: Continue care in PCU. Anticipate pacemaker placement tomorrow or day after. No Eliquis, heparin, beta evan or flecainide as per Cardiology. Lyly Watson MD Internal Medicine Resident, PGY-2 Patient seen and examined by Dr. Maureen OAKLEY with resident physician . Since she was on Eliquis which is currently on hold her ppm LB scheduled for tomorrow. Risks benefits alternative options discussed in detail with the patient. Date of Service: Feb 26, 2025 Billing Provider: RHONDA ALEX MD, VENKATESH, RES Feb 26, 2025 19:56
[2025-02-26 20:00] VITALS: RESP 12; O2SAT 96
[2025-02-26 22:00] VITALS: BP 157/70; PULSE 71; RESP 14; TEMP 97.7; O2SAT 97
[2025-02-27] VITALS (16 sets, daily range): BP systolic 111–152; BP diastolic 64–114; PULSE 71–108; RESP 12–20; TEMP 97–98.3; O2SAT 93–98
[2025-02-27 06:56] LABS: MEAN PLATELET VOLUME 7.1 FL (7.4-10.4); RED CELL DISTRIBUTION WIDTH 12.8 % (11.5-14.5)
[2025-02-27 07:21] LABS: CREATININE 0.75 MG/DL (0.40-0.90); PHOSPHORUS 3.5 MG/DL (2.3-4.5); TOTAL CARBON DIOXIDE 25.2 MMOL/L (24-32); eCRCL 57 ML/MIN; eGFR 75 ML/MIN
[2025-02-27] MEDS ORDERED: fentaNYL/PF 50MCG/1 ML 2ML syringe ONE (14:03)
[2025-02-27] MEDS ORDERED: midazolam 1 mg/ML 2ml injection ONE ×2 (14:03→15:12)
[2025-02-27] MEDS ORDERED: LIDOcaine 1% W/epiNEPHrine 1:100,000 20ml vial ONE (14:03)
[2025-02-27] MEDS ORDERED: vancomycin 1,000mg inj ONE (14:47)
[2025-02-27] MEDS ORDERED: iohexol 350 MG/ML 50ML vial IV ONE (15:06)
[2025-02-27] MEDS ORDERED: hydrALAZINE 20mg/ml inj. ONE (15:38)
[2025-02-27] MEDS ORDERED: HYDROcodone/acetaminophen 5mg/325mg tablet PO PRN (16:45)
[2025-02-27] MEDS: vancomycin/NS 1 GM ADD-VANTAGE 250 ML X 1 DOSE IV ONE (17:31)
[2025-02-27] MEDS: HYDROcodone/acetaminophen 10/325mg tab PO PRN (17:42)
--- NOTE | 2025-02-27 19:22 | PROGRESS NOTE- Residence ---
Progress Note - Resident Providers to CC Resident Creating Document: LYLY DOLAN, DAYSI ~ Antibiotic Timeout Antibiotic Ordered?: No Subjective The patient was seen and examined at bedside today. She is scheduled for permanent pacemaker placement this afternoon by Dr. Salinas. She does not have any " weak" symptoms anymore. Telemetry shows multiple PVCs. Objective Vital Signs Date Time Temp Pulse Resp B/P (MAP) Pulse Ox O2 Delivery O2 Flow Rate FiO2 02/27/25 17:53 97 18 137/64 (88) 98 Room Air 02/27/25 16:30 97.4 02/24/25 23:42 0 Result Diagram: 02/27/2515 02/27/25614 General: Awake and Alert, no acute distress. HEENT: Conjunctiva pink, Sclera clear, Mucus Membranes moist. Resp: Unlabored. Diminished basilar breath sounds. Heart: Regular Rate and rhythm, normal S1 and S2, grade 2/5 pansystolic aortic murmur Abdomen: Distended, Soft and non tender no organomegaly. Bowel sounds present Extremities: No cyanosis,clubbing or edema. Skin: Warm and Dry. No bug bites noted. 1 cm Laceration on the glabella secondary to mechanical trauma. 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 Advised to hold flecainide, metoprolol, Eliquis for pacemaker placement by Dr. Salinas today. Echocardiogram showed ejection fraction of 75%, RVSP of 34 mmHg. Recent nuclear stress test on 10/23/2024 is negative for inducible ischemia. All electrolytes within normal limits, maintain K at 4 and mag at 2.0 Continue telemetry monitoring Overflow incontinence: Secondary to h/o multiple bladder sling procedures No UTI on urinalysis Urinates through self catheterization Continue tolterodine and estradiol Bladder scan q. shift to monitor for urinary retention Mild LUNA secondary to vasomotor nephropathy, resolved X-ray reveals mildly increased pulmonary vascular congestion We will not start IVF but recommend 1-1.5l fluids orally Monitor BMP. Hyperchromic and macrocytic anemia: Follow vitamin B12 Lines: PIV Diet: Heart healthy diet Code status: Full code DVT prophylaxis: SCDs Disposition: Continue care in PCU. Pacemaker placement today. Possible discharge tomorrow. Lyly Dolan MD Internal Medicine Resident, PGY-2 Date of Service: Feb 27, 2025 Billing Provider: CATRACHO GARIBAY MD,LYLY CHAMPAGNE, RES Feb 27, 2025 19:22
[2025-02-28] VITALS (7 sets, daily range): BP systolic 109–143; BP diastolic 57–70; PULSE 68–74; RESP 9–18; TEMP 97.3–98; O2SAT 93–97
[2025-02-28] MEDS: mag hydrox/Alum hydrox/simeth 30ml oral suspension PO PRN (00:14)
[2025-02-28 06:28] LABS: MEAN PLATELET VOLUME 6.9 FL (7.4-10.4); RED CELL DISTRIBUTION WIDTH 13.0 % (11.5-14.5)
[2025-02-28 06:47] LABS: CREATININE 0.76 MG/DL (0.40-0.90); PHOSPHORUS 3.4 MG/DL (2.3-4.5); TOTAL CARBON DIOXIDE 23.3 MMOL/L (24-32); eCRCL 56 ML/MIN; eGFR 74 ML/MIN
--- NOTE | 2025-02-28 08:59 | RADIOLOGY REPORT ---
CHEST RADIOGRAPH Indication: pacemaker follow up Technique: Single frontal view of the chest was obtained COMPARISON: DI CHEST,SINGLE VIEW on DOS: 02/24/25, CHEST,SINGLE VIEW on DOS: 08/02/22, CHEST,SINGLE VIE W on DOS: 08/24/20 FINDINGS: Lines and Tubes: Left chest pacemaker Lungs: Clear Pleura: No effusion. No pneumothorax. Cardiomediastinal contours: Unremarkable Bones: Unremarkable IMPRESSION: No acute disease.
[2025-02-28] MEDS: normal saline 500ml IV soln 500 ML IV ONE (11:05)
--- NOTE | 2025-02-28 11:09 | ELECTROCARDIOGRAPH REPORT ---
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 Paige Musa Measurements Intervals [place] Rate: 66 P: 36 AL: 200 QRS: -8 QRSD: 108 T: 32 QT: 454 QTc: 476 Interpretive Statements Sinus rhythm Inferior infarct, old Electronically Signed On 03-01-2025 19:40:[address] Pagie Musa Please click the below link to view image of tracing.
[2025-02-28] MEDS ORDERED: TAM50T PO (13:24)
[2025-02-28] MEDS ORDERED: CLIN-197 PO (15:04)
[2025-02-28] MEDS ORDERED: vancomycin/NS 1 GM ADD-VANTAGE 250 ML X 1 DOSE IV ONE (18:00)
--- NOTE | 2025-02-28 19:19 | DISCHARGE SUMMARY-Residence ---
Discharge Summary Providers to CC Resident Creating Document: THOMAS KATZ TO, RES ~ Discharge Summary Admission Diagnosis: Weakness and sinus pauses Hospital Course DATE OF ADMISSION: 02/24/25 DATE OF DISCHARGE: 02/28/25 Imaging: Chest X-ray[02/24/25]: Mild pulmonary vascular congestion. Minimal cardiomegaly. No focal consolidation. Chest x-ray[02/28/25]: No acute disease. Echocardiogram[02/25/25]: LEFT VENTRICLE Normal LV size and wall thickness. Overall systolic function is hyperdynamic. Intra-cavitary gradient is present without hemodynamic compromise. Resting gradient is 8 mmHg increasing to 20 mmHg.. LVEF is 75%. RIGHT VENTRICLE Right ventricle is mildly dilated with adequate function. ATRIA Left atrium is moderately dilated. Mobile interatrial septum - no flow detected. AORTIC VALVE Trileaflet AV appears mildly sclerotic without stenosis. No insufficiency. MITRAL VALVE Mild mitral annular calcification without stenosis. Trace regurgitation. TRICUSPID VALVE The tricuspid valve is normal in structure with trace regurgitation. PULMONIC VALVE The pulmonary valve is normal in structure with trace insufficiency. GREAT VESSELS The aortic root is normal in size. The ascending aorta is normal in size. The IVC is normal in size and collapses >50% with inspiration. PERICARDIUM Normal pericardium. No effusion. Prominent anterior epicardial fat pad is present. 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 Salinas on 02/27/2025 Chronic atrial fibrillation LUNA possibly secondary to vasomotor nephropathy Overflow incontinence Operations\Procedures: Permanent pacemaker placement on 02/27/[address] Salinas, the phlebotomy technician Consultants: Dr. Salinas, the phlebotomy technician Complications: None Condition on DC: Stable Discharge Summary: History of present illness by Dr. Martines : A 75 year old female patient with a past medical history of chronic atrial fibrillation and overflow incontinence presents to the hospital with complaints of symptomatic sinus pauses that was recorded on her hall monitor at home. Patient was apparently in good health until today morning when she suddenly developed acute onset of weakness correlating with the sinus pauses with no preceding symptoms including palpitations, chest pain, nausea, dizziness or syncopal episode. Only significant history includes recent camping history last weekend since when she has developed increased urinary frequency. Denies any fevers, chills, recent illnesses, or medication changes. Course in the hospital: Patient was admitted for sinus pauses secondary to type 2 SA corby block. The longest pause on her monitor was not [address] Salinas, phlebotomy technician was consulted. Echocardiogram showed ejection fraction of 75%, RVSP of 34 mmHg. Recent nuclear stress test on 10/23/2024 is negative for inducible ischemia.All electrolytes within normal limits. Advised to hold flecainide, metoprolol, Eliquis for pacemaker placement by Dr. Salinas. Patient underwent permanent pacemaker placement by Dr. Dr. Salinas on 02/27/2025. Patient tolerated the procedure well. She denies any chest pain, shortness of breath, dizziness, syncope, abdominal pain, loss of consciousness. Patient condition was improved significantly during the course of hospitalization. Advised to continue flecainide 100 mg p.o. at morning and flecainide 50 mg p.o. at night. And follow up with the phlebotomy technician after one week. Patient was advised not to travel for at least one month. Patient condition is stable at the time of discharge. The patient felt ready to be discharged and was medically cleared to be discharged on 02/28/2025 The patient was seen and evaluated on day of discharge. Time spent on discharge 35 minutes Advised at discharge: Follow up with phlebotomy technician, Dr. Salinas, after one week Advised not to travel for a month Clindamycin 300 mg p.o. three times a day for seven days Changed the medication flecainide 100 mg p.o. at morning and flecainide 50 mg p.o. at night Continue metoprolol tartrate 25 mg twice daily by mouth Continue Eliquis 5 mg twice daily by mouth Continue aspirin 81 mg once daily by mouth Continue tolterodine 2 mg twice daily by mouth Examination at discharge: General: Awake and Alert, oriented to time place person. Not in acute distress. Well-developed, well-nourished HEENT: Normocephalic, atraumatic. Conjunctiva pink, Sclera clear, Mucus Membranes moist. No carotid bruit and no JVD Chest and respiratory system: Unlabored. Breath sounds are diminished in bilateral lower zones of lung. No crepitations/wheezing Cardiovascular system: Regular Rate and rhythm, normal S1 and S2, no S3, S4, opening snap, ejection clicks. ejection systolic murmur of grade 2 to 3/6 murmur in the aortic area and pulmonary area and with a decreased intensity in the mitral area. No rubs. Abdomen: Distended, Soft and non tender no organomegaly. Bowel sounds present Extremities: No cyanosis,clubbing or edema. Bilateral 2+ DPA and posterior tibial pulses Skin: Warm and Dry. No bug bites noted. 1 x 1 cm Laceration on the glabella secondary to mechanical trauma. Actinic keratoses patches across the face and nasal bridge. Neurologic: Motor, sensory, cranial nerves, reflexes are intact. No focal neurological deficits. Psychiatric: Good eye contact, judgment, insight good, mood Laboratory Tests Test 02/27/25 06:15 02/27/25 12:32 02/27/25 20:15 02/28/25 06:09 White Blood Count 7.9 X10'3 10.5 X10'3 Red Blood Count 4.22 X10'6 4.10 X10'6 Hemoglobin 14.4 g/dl 13.9 g/dl Hematocrit 42.1 % 40.9 % Mean Corpuscular Volume 99.8 FL 99.8 FL Mean Corpuscular Hemoglobin 34.0 PG 33.9 PG Mean Corpuscular Hemoglobin Concent 34.1 g/dL 33.9 g/dL Red Cell Distribution Width 12.8 % 13.0 % Platelet Count 307 X10'3 296 X10'3 Mean Platelet Volume 7.1 FL 6.9 FL Neutrophils (%) (Auto) 41.4 % 55.8 % Lymphocytes (%) (Auto) 40.0 % 26.9 % Monocytes (%) (Auto) 10.1 % 11.4 % Eosinophils (%) (Auto) 7.5 % 5.2 % Basophils (%) (Auto) 1.0 % 0.7 % Neutrophils # (Auto) 3.3 X10'3 5.9 X10'3 Lymphocytes # (Auto) 3.1 X10'3 2.8 X10'3 Monocytes # (Auto) 0.8 X10'3 1.2 X10'3 Eosinophils # (Auto) 0.6 X10'3 0.5 X10'3 Basophils # (Auto) 0.1 X10'3 0.1 X10'3 CBC Comment Sodium Level 141 MMOL/L 137 MMOL/L Potassium Level 5.0 MMOL/L 4.0 MMOL/L 4.5 MMOL/L Chloride Level 105 MMOL/L 104 MMOL/L Carbon Dioxide Level 25.2 MMOL/L 23.3 MMOL/L Anion Gap 11 10 Blood Urea Nitrogen 16 MG/DL 17 MG/DL Creatinine 0.75 MG/DL 0.76 MG/DL Estimated GFR/1.73 m2 75 ML/MIN 74 ML/MIN BUN/Creatinine Ratio 21.3 22.4 Glucose Level 104 MG/DL 115 MG/DL Calcium Level 8.6 MG/DL 8.6 MG/DL Phosphorus Level 3.5 MG/DL 3.4 MG/DL Magnesium Level 2.0 MG/DL 2.0 MG/DL Total Bilirubin 0.3 MG/DL 0.5 MG/DL Aspartate Amino Transf (AST/SGOT) 16 U/L 17 U/L Alanine Aminotransferase (ALT/SGPT) 21 U/L 16 U/L Alkaline Phosphatase 53 IU/L 52 IU/L Total Protein 6.6 G/DL 6.6 G/DL Albumin 3.1 G/DL 3.2 G/DL Globulin 3.5 G/DL 3.4 G/DL Albumin/Globulin Ratio 0.9 0.9 Chemistry Comments Glucometer 97 mg/dl *Problems/Diagnosis: (1) Sinus pause (2) Acute kidney failure (3) Overflow incontinence (4) Chronic atrial fibrillation Total Time Spent on D/C: > 30 Minutes Date of Service: Feb 28, 2025 Billing Provider: CORDELL WALDEN DO Common Visit Codes: 89390-RGT/OBS DISCH DAY >30min THOMAS KATZ, RES Feb 28, 2025 18:47 CORDELL WALDEN DO Feb 28, 2025 19:46
--- NOTE | 2025-03-01 23:29 | CARDIOLOGY REPORT ---
DATE OF SERVICE: 02/27/2025 DICTATING PHYSICIAN: SVEN Salinas MD PERMANENT PACEMAKER IMPLANTATION REPORT GENDER: Female. AGE: 75. HEIGHT: 165 cm. WEIGHT: 57 kg. BODY SURFACE AREA: 1.6 m2. CHIEF GAUGER: SVEN Salinas MD, [facility] PRIMARY PHYSICIAN: Dago Artis MD INDICATION: The patient is a 75-year-old postmenopausal female with episodes of prolonged pauses, consistent sinoatrial arrest, which were recorded both on her cell phone jose [employer] as well as when she was hospitalized on the equipment monitor phototypesetting, prolonged pauses multiple times more than 3-4 seconds and the patient had associated symptoms of instability, tiredness, dizziness. After discussing risk, benefit and alternative options, the patient has decided to proceed with permanent pacemaker implantation. Risks, benefits and alternative options discussed. Informed consent obtained. PREPROCEDURE DIAGNOSES: Sick sinus syndrome with symptomatic tachycardia and bradycardia syndrome episodes. POSTPROCEDURE DIAGNOSES: Sick sinus syndrome with symptomatic tachycardia and bradycardia syndrome episodes. PROCEDURES DONE: 1. Fluoroscopy. 2. AV sequential pacemaker implantation. 3. Conscious sedation time of 60 minutes. DESCRIPTION OF PROCEDURE: Procedure was carried out under conscious and local anesthesia. Left infraclavicular area was prepped and draped in the usual fashion. Two separate access were obtained in the left subclavian vein using micropuncture Seldinger technique. Two micropuncture wires were replaced with two J-wires. Two 7-Argentine sheaths were advanced over them. Through one of them, right ventricular lead was advanced into the right ventricle, and was screwed in To right ventricular apex. Appropriate pacing and sensory threshold supplied and sheath removed by in peel-away technique and lead anchored to the subcutaneous tissue with Ethibond. Through the second, a 7-Argentine sheath, the right atrial lead was advanced to the right atrium, screwed into the right atrial appendage. Appropriate pacing and sensing thresholds obtained. Sheath removed in peel-away technique and lead anchored to the subcutaneous tissue with Ethibond. Leads connected to appropriate sockets of the pulse generator. The pocket irrigated with copious antibiotic solution. The pacemaker was suspended into the pacemaker pocket. The pocket was closed with continuous 0 Vicryl followed by interrupted 2-0 Vicryl, second layer of interrupted 2-0 Vicryl applied. Skin approximated with bouchra. Pressure dressing applied. TECHNICAL INFORMATION: Device used was [employer] MRI compatible Lexii pacemaker. Model number [id number], serial number [id number], [employer], 02/27/2025, left pectoral location. RIGHT ATRIAL LEAD: Model number 4076, 52 cm long, serial number [id number], [employer], 02/27/2025 right atrial appendage, P-wave amplitude 1.9 mV, 608 ohms of impedance, pacing threshold of 0.75 volts at 0.4 milliseconds. RIGHT VENTRICULAR LEAD: Model number 5076, 58 cm long, serial number [id number], [employer], 02/27/2025, R-wave amplitude of 10.4 millivolts, 980 ohms of impedance, pacing threshold of 1.5 volts at 0.4 milliseconds. IMPRESSION: A 75-year-old woman postmenopausal female with sick sinus syndrome with symptomatic tachy and melissa episode, underwent successful AV sequential pacemaker implantation with no complication. SVEN Salinas MD TID: [id number] RECEIPT: [id number] RENNY/SOCORRO/JACKA cc: Dr. Dago Artis. [facility]
== END 2025-02-28 16:36 | disposition home or self-care (01) | DRG 242 ==
LOC: ER 22:17 → ED HOLD 23:15 → EDBEDREQ 23:46 → PCU 3S 02-25 00:11
PROVIDERS: ADMIT Internal Medicine Pulmonary Disease; ATTEND Family Medicine
PROC: 0JH606Z Insertion of Pacemaker, Dual Chamber into Chest Subcutaneous Tissue and Fascia, Open Approach (ICD-10-PCS; principal; 2025-02-27)
PROC: 02H63JZ Insertion of Pacemaker Lead into Right Atrium, Percutaneous Approach (ICD-10-PCS; 2025-02-27)
PROC: 02HK3JZ Insertion of Pacemaker Lead into Right Ventricle, Percutaneous Approach (ICD-10-PCS; 2025-02-27)
DX: I45.5 Other specified heart block (principal); N17.0 Acute kidney failure with tubular necrosis; I48.91 Unspecified atrial fibrillation; D53.9 Nutritional anemia, unspecified; E11.9 Type 2 diabetes mellitus without complications; N39.490 Overflow incontinence; K21.9 Gastro-esophageal reflux disease without esophagitis; I25.10 Atherosclerotic heart disease of native coronary artery without angina pectoris; E78.5 Hyperlipidemia, unspecified; E78.00 Pure hypercholesterolemia, unspecified; I10 Essential (primary) hypertension; I25.2 Old myocardial infarction; Z82.49 Family history of ischemic heart disease and other diseases of the circulatory system; Z83.3 Family history of diabetes mellitus; Z90.710 Acquired absence of both cervix and uterus
CPT/HCPCS: 33208; 36415; 71045; 80048; 80053; 80061; 81001; 81003; 82607; 82948; 83036; 83735; 83880; 84100; 84132; 84443; 84484; 85025; 87081; 87088; 93005; 93306; 97161; 97530; 99152; 99153; 99285; A4565; A6449; C1785; C1898; G0378; J0360; J0690; J1200; J2250; J3010; J3373; J3490; J7030; J7040; Q9967

== ENCOUNTER 2025-04-15 15:04 | Outpatient (CLI) | payer MEDICARE, BC ==
[~2025-04-15 15:04] MED LIST changes: -ASPI-1053 PO; +ASPI-1265 PO; -ATOR10TA70 PO; +BIOT5000 PO; -BUPR-724 PO; -LACT1CAP26 PO; +LACT1CAP65 PO; -LANS30CA56 PO; +TAM50T PO
--- NOTE | 2025-04-16 01:17 | CONSULTATION ---
DATE OF CONSULTATION: 04/15/2025 DICTATING PHYSICIAN: Madison Chavarria M.S., [facility] MODIFIED BARIUM SWALLOW STUDY REPORT REFERRING PHYSICIAN: Kory Virgen MD HISTORY OF PRESENT ILLNESS: The patient is a 75-year-old female and consents to this evaluation. In history obtained from the patient and medical records, the patient reports symptoms of dysphagia, including choking on food and liquid about once a week. The patient has, per medical history, a prior esophageal dilation. She has also noted some changes in her voice and so she was seen by Dr. 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 She was instructed on reflux precautions and prescribed a reflux medication at that time, and she reports she is not taking that medication at this time. The patient also reports history of traumatic brain injury approximately 5 years ago, and so she has difficulty with her memory and can only remember 2-step directions, not 3 steps. The patient also reports pacemaker placement. CURRENT DIET: In terms of caffeine, the patient has 1 cup of coffee twice weekly and 1 Diet Coke three times weekly. She does not utilize tobacco products or drink alcohol. She consumes chocolate once to twice daily in the form of her chocolate protein drink. She is unsure if the protein drink is dairy-based. In terms of dairy products, she has 4 ounces of milk every night and cheese. A typical breakfast consists of her protein drink. She snacks in the morning on an apple. At lunch, she has another protein drink. Dinner is eaten between 6:00-7:00 p.m. and may be something such as a duke chop, salad, and rice. She has a dessert of a frozen fruit bar at 8:00 p.m. and goes to bed at 10:00 p.m. MEDICATIONS: Eliquis 5 mg; tolterodine 2 mg; metoprolol succinate 25 mg; estradiol 1 mg; flecainide 50 mg 2 in the morning, 1 in the afternoon; aspirin 81 mg. PARAMETERS: The patient is seated in lateral 90-degree view, and administered the usual protocol of thin and nectar thick liquids, puree and solid consistencies, as well as self-regulated boluses of thin liquids from a cup. RESULTS: In the oral stage of the swallow, lingual strength is within functional limits. There is a mild oral residue noted on the tongue base after the tail of the bolus has passed. In the pharyngeal stage of the swallow, tongue-based retraction is mildly reduced. Swallow initiation is within functional limits. Anterior movement of the posterior pharyngeal wall is observed. Elevation of the hyoid-thyroid complex is accomplished with full range of motion. There is a mild pharyngeal residue at the level of the vallecula following the initial swallow of boluses. PES opening is within functional limits. In terms of airway safety, at no time was the patient noted to penetrate or aspirate on any of the bolus sizes or consistencies. ANTERIOR, POSTERIOR VIEW: In the AP plane, the bolus split symmetrically between the piriform sinuses and there was no proximal movement of the boluses noted. IMPRESSION: The patient demonstrates with what appears to be a mild oropharyngeal stage swallowing disorder characterized by mildly reduced tongue-based retraction that results in a mild oral and pharyngeal residue following that initial swallow of boluses. DIAGNOSES: R13.12, dysphagia, oropharyngeal phase, K21.9, gastroesophageal reflux disease. PATIENT EDUCATION: Immediately following modified barium swallow study, the patient was able to view the results. A normal anatomy of the swallowing mechanism was revealed. The patient was able to see how the current status of the swallowing mechanism decreases her ability to swallow normally. The patient declined speech therapy for either her voice or swallowing at this time, but was interested in something she could do at home to help with her swallow. She was educated on the effortful swallow exercise with a written handout provided. RECOMMENDATIONS: It is recommended that the patient complete the effortful swallow exercise 2 sets of 10 x 4 a week. LONG-TERM GOALS: The patient will maintain adequate hydration/nutrition with optimum safety and efficiency of swallow function on p.o. intake without overt signs and symptoms of aspiration for the highest possible diet level. FUNCTIONAL ORAL INTAKE: The FOIS was administered to establish and document a change in the functional eating activities of this patient over time. This is a 7-point scale with 1 indicating no oral intake and totally tube dependent and 7 indicating total oral intake with no restrictions. This patient received a 7, which indicates she has a total oral diet with no restrictions. G-CODE: [id number]. Thank you very much for asking me to participate in the care of this kind patient. Should you have any questions regarding this evaluation or recommendations, please do not hesitate to contact me at [phone]. During this examination, 3:03 minutes of fluoroscopy time and 16.05 CAK mGy were utilized. Madison Chavarria M.S., [facility] TID: [id number] RECEIPT: [id number] KO MARTIN
== END 2025-04-15 23:59 | disposition home or self-care (01) ==
LOC: RAD 15:04
PROVIDERS: ATTEND Otolaryngology
DX: R13.14 Dysphagia, pharyngoesophageal phase (principal); K21.9 Gastro-esophageal reflux disease without esophagitis
CPT/HCPCS: 74230